=== PATIENT | female | born 1970 | race Caucasian/White ===

== ENCOUNTER → 2020-07-14 | Outpatient (CLI) | payer BC ==
--- NOTE | 2020-07-14 13:03 | Diagnostic Imaging Report ---
INDICATION: Fall and left knee pain. TIME OF EXAM: 11:40 AM Multiple views of the left knee were obtained. There are mild tricompartmental degenerative changes with mild joint space narrowing and marginal spurring. No fracture, dislocation or effusion is detected. IMPRESSION: Degenerative changes. No acute bony abnormality is detected. Dictated by: Dictated on workstation # [id number]
== END ==
LOC: RAD FS 11:30
PROVIDERS: ATTEND Nurse Practitioner
DX: S83.222A Peripheral tear of medial meniscus, current injury, left knee, initial encounter (principal); M17.12 Unilateral primary osteoarthritis, left knee; W19.XXXA Unspecified fall, initial encounter
CPT/HCPCS: 73562

== ENCOUNTER 2020-10-11 10:00 | Inpatient (IN) | payer BC ==
[~2020-10-11] VITALS: Ht 180 cm; Wt 166.2 kg
[2020-10-11 10:45] LABS: BASOPHILS # (AUTO) 0.1 10^3/uL (0.0-0.1); BASOPHILS % (AUTO) 0 % (0-10); EOSINOPHILS % (AUTO) 0 % (0-10); HEMATOCRIT 40 % (35-52); HEMOGLOBIN 12.7 g/dL (11.5-16.0); LYMPHOCYTES # (AUTO) 2.1 10^3/uL (1.0-4.0); LYMPHOCYTES % (AUTO) 16 % (12-44); MEAN CORPUSCULAR HEMOGLOBIN 26 pg (25-34); MEAN CORPUSCULAR HGB CONC 32 g/dL (32-36); MEAN CORPUSCULAR VOLUME 81 fL (80-99); MEAN PLATELET VOLUME 9.7 fL (9.0-12.2); MONOCYTES # (AUTO) 0.9 10^3/uL (0.0-1.0); MONOCYTES % (AUTO) 7 % (0-12); NEUTROPHILS # (AUTO) 10.2 10^3/uL (1.8-7.8); NEUTROPHILS % (AUTO) 76 % (42-75); PLATELET COUNT 314 10^3/uL (130-400); WHITE BLOOD COUNT 13.4 10^3/uL (4.3-11.0)
[2020-10-11 10:57] LABS: ALBUMIN 4.1 GM/DL (3.2-4.5)
[2020-10-11 10:58] LABS: POTASSIUM 3.6 MMOL/L (3.6-5.0)
[2020-10-11 10:59] LABS: CALCIUM 8.5 MG/DL (8.5-10.1)
[2020-10-11 11:00] LABS: TOTAL PROTEIN 8.1 GM/DL (6.4-8.2)
--- NOTE | 2020-10-11 11:00 | Diagnostic Imaging Report ---
History: Chest pain TECHNIQUE: Frontal view of the chest COMPARISON: None FINDINGS: Lung volumes are mildly large. Haziness over the lung bases is thought to be due to overlying soft tissue. There is mild cardiomegaly and mild central vascular congestion. No pleural effusion or pneumothorax is seen. IMPRESSION: 1. Mild cardiomegaly and mild central vascular congestion. Dictated by: Dictated on workstation # [id number]
[2020-10-11 11:02] LABS: BILIRUBIN,TOTAL 0.5 MG/DL (0.1-1.0)
[2020-10-11 11:04] LABS: CREATININE SERUM 1.02 MG/DL (0.60-1.30)
[2020-10-11 11:06] LABS: FIBRIN DEGRADATION PRODUCTS 11.3 UG/ML (0.00-0.49); INR 1.1 (0.8-1.4); MAGNESIUM 2.1 MG/DL (1.6-2.4); PROTHROMBIN TIME PATIENT 14.4 SEC (12.2-14.7)
--- NOTE | 2020-10-11 11:28 | NUR ---
RESTING IN BED WITH NO COMPLAINTS AT THIS TIME.
[2020-10-11] MEDS ORDERED: ASPIRIN 81 MG CHEW (CHILDREN'S ASA) PO ONE (11:45)
--- NOTE | 2020-10-11 11:47 | NUR ---
IN TALKING TO THE PT AT THIS TIME.
[2020-10-11] MEDS ORDERED: HOLD METFORMIN - RECEIVED CONTRAST 20 ML VIAL IV SCH (12:15)
[2020-10-11] MEDS ORDERED: NS 100 ML (IVPB) BAG IV ONE (12:15)
[2020-10-11] MEDS ORDERED: IOHEXOL 350 MG/ML 100 ML (OMNIPAQUE 350) VIAL IV ONE (12:15)
--- NOTE | 2020-10-11 13:08 | ED Chest Pain ---
General Chief Complaint: Chest Pain Stated Complaint: IRREGULAR EKG Nursing Triage Note: ARRIVED VIA AMB TO ROOM 09. SENT FROM [facility] WITH INCREASED SOA AND CHEST PAIN OVER LAST WEEK. PT STATES SHE HAS A COUGH IN THE EVENINGS. Nursing Sepsis Screen: No Definite Risk Source: patient, other (Clinic report) Exam Limitations: no limitations History of Present Illness Date Seen by Provider: Oct 11, 2020 Time Seen by Provider: 10:03 Initial Comments This 50-year-old woman presents to the emergency room via private vehicle from the [facility] clinic in [place] where she was noted to have chest pain and shortness of breath with exertion that started a week ago as well as a mild cough that started 3 weeks ago. She was noted to be hypoxic after exertion with oxygen saturation of 90% on room air. She was then directed to the emergency room. On arrival to our ER measures an oxygen saturation of 79% on room air. She denies any fever, nausea, diarrhea, headache, or other symptoms of infectious illness. She has no known Covid exposures. She notes chronic left knee pain but denies any calf or thigh pain or unilateral swelling. She did note increased pain in her knee when she traveled to [place] a week ago on Tuesday when her symptoms of exertional chest pain and shortness of breath st arted. Patient reports she is on oral contraception. Allergies and Home Medications Allergies Coded Allergies: No Known Drug Allergies (Unverified , 10/11/20) Patient Home Medication List Home Medication List Reviewed: Yes Review of Systems Review of Systems Constitutional: no symptoms reported EENTM: No Symptoms Reported Respiratory: See HPI Cardiovascular: See HPI Gastrointestinal: No Symptoms Reported Genitourinary: No Symptoms Reported Musculoskeletal: no symptoms reported Skin: no symptoms reported Psychiatric/Neurological: No Symptoms Reported Endocrine: No Symptoms Reported Hematologic/Lymphatic: No Symptoms Reported Past Bjdjfhv-Jrwhxm-Epemhb Hx Past Med/Social Hx: Reviewed Nursing Past Med/Soc Hx Patient Social History Alcohol Use: Rarely Uses Recreational Drug Use: No Recent Foreign Travel: No Contact w/Someone Who Travel: No Recent Infectious Disease Expo: No Recent Hopitalizations: No Seasonal Allergies Seasonal Allergies: No Past Medical History Surgeries: Yes (DENTAL) Respiratory: No Cardiac: Yes Hypertension Neurological: No : No Genitourinary: No Gastrointestinal: No Musculoskeletal: No Endocrine: No HEENT: No Cancer: No Psychosocial: No Physical Exam Vital Signs Vital Signs - First Documented 10/11/20 10:10 Temp 36.7 Pulse 95 Resp 16 B/P (MAP) 166/133 (144) Pulse Ox 79 O2 Delivery Nasal Cannula O2 Flow Rate 2.00 Capillary Refill : Less Than 3 Seconds Height, Weight, BMI Height: '" Weight: lbs. oz. 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 II- XII Norm as Tested Skin: Normal Color, Warm/Dry Progress/Results/Core Measures Results/Orders Lab Results Laboratory Tests Test 10/11/20 10:30 10/11/20 12:52 Range/Units White Blood Count 13.4 H 4.3-11.0 10^3/uL Red Blood Count 4.86 3.80-5.11 10^6/uL Hemoglobin 12.7 11.5-16.0 g/dL Hematocrit 40 35-52 % Mean Corpuscular Volume 81 80-99 fL Mean Corpuscular Hemoglobin 26 25-34 pg Mean Corpuscular Hemoglobin Concent 32 32-36 g/dL Red Cell Distribution Width 16.0 H 10.0-14.5 % Platelet Count 314 130-400 10^3/uL Mean Platelet Volume 9.7 9.0-12.2 fL Immature Granulocyte % (Auto) 1 % Neutrophils (%) (Auto) 76 H 42-75 % Lymphocytes (%) (Auto) 16 12-44 % Monocytes (%) (Auto) 7 0-12 % Eosinophils (%) (Auto) 0 0-10 % Basophils (%) (Auto) 0 0-10 % Neutrophils # (Auto) 10.2 H 1.8-7.8 10^3/uL Lymphocytes # (Auto) 2.1 1.0-4.0 10^3/uL Monocytes # (Auto) 0.9 0.0-1.0 10^3/uL Eosinophils # (Auto) 0.0 0.0-0.3 10^3/uL Basophils # (Auto) 0.1 0.0-0.1 10^3/uL Immature Granulocyte # (Auto) 0.1 0.0-0.1 10^3/uL Prothrombin Time 14.4 12.2-14.7 SEC INR Comment 1.1 0.8-1.4 Activated Partial Thromboplast Time 34 24-35 SEC D-Dimer 11.30 H 0.00-0.49 UG/ML Sodium Level 141 135-145 MMOL/L Potassium Level 3.6 3.6-5.0 MMOL/L Chloride Level 106 98-107 MMOL/L Carbon Dioxide Level 22 21-32 MMOL/L Anion Gap 13 5-14 MMOL/L Blood Urea Nitrogen 14 7-18 MG/DL Creatinine 1.02 0.60-1.30 MG/DL Estimat Glomerular Filtration Rate 57 BUN/Creatinine Ratio 14 Glucose Level 100 70-105 MG/DL Calcium Level 8.5 8.5-10.1 MG/DL Corrected Calcium 8.4 L 8.5-10.1 MG/DL Magnesium Level 2.1 1.6-2.4 MG/DL Total Bilirubin 0.5 0.1-1.0 MG/DL Aspartate Amino Transf (AST/SGOT) 15 5-34 U/L Alanine Aminotransferase (ALT/SGPT) 20 0-55 U/L Alkaline Phosphatase 149 H 40-136 U/L Lactate Dehydrogenase 239 H 125-220 U/L Myoglobin 30.8 10.0-92.0 NG/ML Troponin I 0.070 H <0.028 NG/ML C-Reactive Protein High Sensitivity 8.26 H 0.00-0.50 MG/DL B-Type Natriuretic Peptide 260.4 H <100.0 PG/ML Total Protein 8.1 6.4-8.2 GM/DL Albumin 4.1 3.2-4.5 GM/DL Procalcitonin 0.03 <0.10 NG/ML Coronavirus 2019 (HORTENCIA) Negative Negative Micro Results Microbiology 10/11/20 Influenza Types A,B Antigen (KIMANI) - Final, Complete My Orders Orders - STANLEY GARCIA MD Cbc With Automated Diff (10/11/20 10:03) Magnesium (10/11/20 10:03) Chest 1 View, Ap/Pa Only (10/11/20 10:03) Ekg Tracing (10/11/20 10:03) Comprehensive Metabolic Panel (10/11/20 10:03) Myoglobin Serum (10/11/20 10:03) Protime With Inr (10/11/20 10:03) Partial Thromboplastin Time (10/11/20 10:03) O2 (10/11/20 10:03) Monitor-Rhythm Ecg Trace Only (10/11/20 10:03) Lipid Panel (10/12/20 06:00) Ed Iv/Invasive Line Start (10/11/20 10:03) BNP (10/11/20 10:03) Covid 19 Inhouse Test (10/11/20 10:03) Influenza A And B Antigens (10/11/20 10:08) Fibrin Degradation Products (10/11/20 10:03) Hs C Reactive Protein (10/11/20 10:03) LDH (10/11/20 10:03) Procalcitonin (Pct) (10/11/20 10:03) Troponin I (10/11/20 10:03) Ct Angio Chest W (10/11/20 11:42) Aspirin Chewable Tablet (Baby Aspirin Ch (10/11/20 11:45) Iohexol Injection (Omnipaque 350 Mg/Ml 1 (10/11/20 12:15) Received Contrast (Hold Metformin- Contr (10/11/20 12:15) Ns (Ivpb) (Sodium Chloride 0.9% Ivpb Bag (10/11/20 12:15) Covid-19 Igg Only So (10/11/20 13:27) Apixaban Tablet (Eliquis Tablet) (10/11/20 14:00) Medications Given in ED Current Medications Medications Dose Ordered Sig/Ahmet Route Start Time Stop Time Status Last Admin Dose Admin Aspirin 324 mg ONCE ONCE PO 10/11/20 11:45 10/11/20 11:46 DC 10/11/20 12:22 324 MG Iohexol 100 ml ONCE ONCE IV 10/11/20 12:15 10/11/20 12:16 DC 10/11/20 12:37 92 ML Sodium Chloride 100 ml ONCE ONCE IV 10/11/20 12:15 10/11/20 12:16 DC 10/11/20 12:37 80 ML Vital Signs/I&O 10/11/20 10/11/20 10:10 10:10 Temp 36.7 Pulse 95 Resp 16 B/P (MAP) 166/133 (144) Pulse Ox 79 79 O2 Delivery Nasal Cannula Room Air O2 Flow Rate 2.00 Blood Pressure Mean: 144 Progress Progress Note : Progress Note Work-up revealed multiple problems including elevated troponin and a left bundle branch block on the EKG. D-dimer was markedly elevated and CT angiogram showed large bilateral PEs. It is thought that this may have been triggered by prior Covid infection as patient had a cough starting about 3 weeks ago. Patient also notes that she traveled to [place] a week ago when her pain in the chest started. Rapid Covid test was negative rapid influenza test was negative I discussed the situation with Dr. Chirstie who requested that we obtain a Covid antibody screen and take the patient off of PUI precautions at this time. I discussed with Dr. Neely who recommended starting therapeutic doses of Eliquis. The first dose will be given in the ER. Initial ECG Impression Date: Oct 11, 2020 Initial ECG Impression Time: 10:16 Initial ECG Rate: 93 Initial ECG Rhythm: Normal Sinus Comment Sinus rhythm with no overt ischemic ST elevation or depression. QRS suggestive of left bundle branch block. Diagnostic Imaging Diagonstic Imaging: Xray Plain Films/CT/US/NM/MRI: chest Comments Chest x-ray viewed by me and report reviewed. See report below: NAME: JELENA ROSS [facility] REC#: [id number] PT STATUS: REG ER : 1970 PHYSICIAN: STANLEY GARCIA MD ADMIT DATE: 10/11/20/ER Signed Date of Exam:10/11/20 CHEST 1 VIEW, AP/PA ONLY History: Chest pain TECHNIQUE: Frontal view of the chest COMPARISON: None FINDINGS: Lung volumes are mildly large. Haziness over the lung bases is thought to be due to overlying soft tissue. There is mild cardiomegaly and mild central vascular congestion. No pleural effusion or pneumothorax is seen. IMPRESSION: 1. Mild cardiomegaly and mild central vascular congestion. Dictated by: Dictated on workstation # [id number] Dict: 10/11/20 1058 Trans: 10/11/20 1059 S2M [id number] Interpreted by: YADI WILLIAMSON MD Electronically signed by: YADI WILLIAMSON MD 10/11/20 1059 Diagonstic Imaging: CT Plain Films/CT/US/NM/MRI: chest Comments CT angiogram chest viewed by me and report reviewed. See report below: NAME: JELENA ROSS [facility] REC#: [id number] PT STATUS: REG ER : 1970 PHYSICIAN: STANLEY GARCIA MD ADMIT DATE: 10/11/20/ER Draft Date of Exam:10/11/20 CT ANGIO CHEST W PROCEDURE: CT angiography of the chest with contrast. TECHNIQUE: Multiple contiguous axial images were obtained through the chest after uneventful bolus administration of intravenous contrast. 3D reconstructed CTA MIP acquisitions were also performed. Auto Exposure Controls were utilized during the CT exam to meet ALARA standards for radiation dose reduction. INDICATION: Chest pain. CORRELATION: None FINDINGS: There is rather significant contrast bolus timing present. However, there is the presence of an extensive pulmonary embolism. Clot originates within the distal aspect of both right and left main pulmonary arteries. There is a clot extending into the bilateral lower lobes, right middle lobe as well as bilateral upper lobe branches. Heart size is enlarged. Early right heart strain not excluded. No pericardial effusion. Thoracic aortic contour unremarkable. A few mildly prominent but non-pathologically enlarged mediastinal lymph nodes are noted. Azygos vein is slightly distended. There are mild groundglass opacities within the lung bahena particularly in the lower lobe distributions. No bar lobar consolidating infiltrate. No significant pleural effusion. There are scattered small pulmonary nodules present. Anterior right middle lobe subpleural region, 9 mm. There are several left lower lobe pulmonary nodules. Two adjacent nodules both measuring up to 5 mm. Likely hepatic steatosis. The visualized osseous structures demonstrate no acute findings. IMPRESSION: 1. Findings positive for pulmonary embolism. There is a rather extensive, large amount of thrombus burden. Clot originates at the distal aspect of the right and left main pulmonary arteries with involvement of all lobe segments. Question early right heart strain. CLINICAL FINDINGS Telephone call made to the emergency department, 12:56 PM. Dictated on workstation # [id number] Dict: 10/11/20 1254 Trans: 10/11/20 1312 [facility] [id number] Interpreted by: AARTI BARTON DO Departure Communication (Admissions) Time/Spoke to Admitting Phy: 13:45 Dr. Christie Time/Spoke to Consulting Phy: 13:05 Dr. Neely Impression Primary Impression: Bilateral pulmonary embolism Additional Impressions: Elevated troponin Hypoxia Disposition: ADMITTED INPATIENT Condition: Improved Admissions Decision to Admit Reason: Admit from ER (General) Decision to Admit/Date: Oct 11, 2020 Time/Decision to Admit Time: 10:05 Departure-Patient Inst. Referrals: [facility] (PCP) Primary Care Physician EDYTA NOGUERA APRN (Family) Primary Care Physician STANLEY GARCIA MD Oct 11, 2020 13:08
--- NOTE | 2020-10-11 13:13 | Diagnostic Imaging Report ---
PROCEDURE: CT angiography of the chest with contrast. TECHNIQUE: Multiple contiguous axial images were obtained through the chest after uneventful bolus administration of intravenous contrast. 3D reconstructed CTA MIP acquisitions were also performed. Auto Exposure Controls were utilized during the CT exam to meet ALARA standards for radiation dose reduction. INDICATION: Chest pain. CORRELATION: None FINDINGS: There is rather significant contrast bolus timing present. However, there is the presence of an extensive pulmonary embolism. Clot originates within the distal aspect of both right and left main pulmonary arteries. There is a clot extending into the bilateral lower lobes, right middle lobe as well as bilateral upper lobe branches. Heart size is enlarged. Early right heart strain not excluded. No pericardial effusion. Thoracic aortic contour unremarkable. A few mildly prominent but non-pathologically enlarged mediastinal lymph nodes are noted. Azygos vein is slightly distended. There are mild groundglass opacities within the lung bahena particularly in the lower lobe distributions. No bar lobar consolidating infiltrate. No significant pleural effusion. There are scattered small pulmonary nodules present. Anterior right middle lobe subpleural region, 9 mm. There are several left lower lobe pulmonary nodules. Two adjacent nodules both measuring up to 5 mm. Likely hepatic steatosis. The visualized osseous structures demonstrate no acute findings. IMPRESSION: 1. Findings positive for pulmonary embolism. There is a rather extensive, large amount of thrombus burden. Clot originates at the distal aspect of the right and left main pulmonary arteries with involvement of all lobe segments. Question early right heart strain. CLINICAL FINDINGS Telephone call made to the emergency department, 12:56 PM. Dictated by: Dictated on workstation # [id number]
--- NOTE | 2020-10-11 13:32 | NUR ---
PER DR SNYDER PT IS NO LONGER A PUI
[2020-10-11] MEDS ORDERED: APIXABAN 5 MG (ELIQUIS) TABLET PO ONE (14:00)
--- NOTE | 2020-10-11 15:17 | NUR ---
RESTING IN BED ET NOTIFIED SHE WOULD BE ADMITTED SOON ICU WAS READY. DENIES NEEDS AT THIS TIME.
--- NOTE | 2020-10-11 15:25 | NUR ---
PT BLOOD PRESSURE CONTINUES TO BE HIGH. PT STATES SHE IS ANXIOUS AND SCARED ABOUT BEING IN THE HOSPITAL ALONE.
[2020-10-11] MEDS ORDERED: ALPRAZolam 0.5 MG (XANAX) TAB PO PRN ×2 (15:30→16:30)
[2020-10-11] MEDS ORDERED: LORazepam INJ 2 MG/ML (ATIVAN) VIAL IVP ONE ×2 (15:45)
--- NOTE | 2020-10-11 15:51 | NUR ---
attempt to call report et nurse did not answer.
[2020-10-11 16:10] VITALS: BP 170/101
[2020-10-11] MEDS ORDERED: NS IV 1000 ML 1,000 ML ONE (16:12)
[2020-10-11] MEDS ORDERED: ONDANSETRON 4 MG/2 ML (SDV) Z0FRAN IV PRN (16:30)
[2020-10-11] MEDS ORDERED: NS IV 1000 ML 1,000 ML IV SCH (16:45)
[2020-10-11] MEDS ORDERED: LABETALOL HCL 20 MG/4 ML VIAL IV ONE (17:30)
--- NOTE | 2020-10-11 20:22 | History & Physical-Hospitalist ---
History of Present Illness HPI/Chief Complaint CC: Bilateral PE HPI: This is a 50yoWF clinic patient of [facility] who presented to the ER with dyspnea and cough which started 3 weeks ago. Upon w/u d-dimer was elevated and CT angiogram revealed large clot load of PE. Patient has never had a clot before. Left knee pain has limited her activity for the past 1 year. It is hypothesized she had COVID-19 3 weeks ago and thrombosis risk increased and left knee pain and immobility and obesity risk factors gave rise to the clot. Currently she is doing well and I spoke to her of 30 years on the phone with her. Eliquis 10mg given and will be monitored closely and COVID-19 antibody level was drawn and pending now. HLIVF will be initiated. Source: patient Exam Limitations: clinical condition Date Seen 10/11/20 Time Seen by a Provider: 17:30 Attending Physician Mari Christie DO [facility] Referring Physician Date of Admission Oct 11, 2020 at 14:02 Home Medications & Allergies Home Medications Reviewed patient Home Medication Reconciliation performed by pharmacy medication reconciliations maintenance parts technician and/or nursing. Patients Allergies have been reviewed. Allergies Allergies Coded Allergies No Known Drug Allergies (Unverified10/11/20) Past Msixkap-Anwnbl-Msqtlw Hx Past Med/Social Hx: Reviewed Nursing Past Med/Soc Hx, Reviewed and Corrections made Patient Social History Marrital Status: Employed/Student: unemployed Alcohol Use: Rarely Uses Recreational Drug Use: No Smoking Status: Never a Smoker Recent Foreign Travel: No Contact w/other who traveled: No Recent Hopitalizations: No Recent Infectious Disease Expo: No Seasonal Allergies Seasonal Allergies: No Past Medical History Cardiac: Hypertension : No Family History FH: skin cancer 19 MOTHER (FACIAL) Review of Systems Constitutional: see HPI Respiratory: cough, dyspnea on exertion Physical Exam Physical Exam Vital Signs Vital Signs - First Documented 10/11/20 10:10 Temp 36.7 Pulse 95 Resp 16 B/P (MAP) 166/133 (144) Capillary Refill : Less Than 3 Seconds Height, Weight, BMI Height: '" Weight: lbs. oz. kg; 49.96 BMI Method: General Appearance: No Apparent Distress, Chronically ill, Obese Eyes: Right Eye Normal Inspection, Right Eye PERRL HEENT: PERRL/EOMI, Normal ENT Inspection, Pharynx Normal, Moist Mucous Membranes Neck: Full Range of Motion, Normal Inspection, Non Tender Respiratory: Chest Non Tender, Lungs Clear, Normal Breath Sounds, No Accessory Muscle Use, No Respiratory Distress Cardiovascular: Regular Rate, Rhythm, No Edema, No Gallop, No JVD, No Murmur, Normal Peripheral Pulses Gastrointestinal: Normal Bowel Sounds, No Organomegaly, No Pulsatile Mass, Non Tender, Soft Back: Normal Inspection, No CVA Tenderness, No Vertebral Tenderness Extremity: Normal Capillary Refill, Normal Inspection, Normal Range of Motion, Non Tender, No Calf Tenderness, No Pedal Edema Neurologic/Psychiatric: Alert, Oriented x3, No Motor/Sensory Deficits, Normal Mood/Affect Skin: Normal Color, Warm/Dry Lymphatic: No Adenopathy Results Results/Procedures Labs Laboratory Tests 10/11/20 10:30 Patient resulted labs reviewed. Assessment/Plan Admission Diagnosis Assessment: Bilateral PE Presumed COVID 3 weeks ago increasing thrombosis risk Obesity morbid BMI 50 Left knee pain limiting mobility x 1 year HTN Plan: Eliquis 10mg PO BID HLIVF Monitor closely Admission Status: Inpatient Order (span 2 midnights) Reason for Inpatient Admission: PE Diagnosis/Problems Diagnosis/Problems (1) Bilateral pulmonary embolism Status: Acute (2) Elevated troponin Status: Acute (3) Hypoxia Status: Acute Clinical Quality Measures AMI/AHF: ASA po Prior to arrival: No DVT/VTE Risk/Contraindication: Risk Factor Score Per Nursin RFS Level Per Nursing on Admit: 3=High MARI CHRISTIE DO Oct 11, 2020 20:22
[2020-10-11] MEDS: SENNA W/DOCUSATE (SENOKOT S) TABLET PO SCH (20:53)
[2020-10-11] MEDS ORDERED: LORazepam INJ 2 MG/ML (ATIVAN) VIAL ONE (20:59)
[2020-10-11] MEDS ORDERED: DOCUSATE SODIUM 100 MG (COLACE) CAP PO PRN (21:00)
[2020-10-11] MEDS ORDERED: ONDANSETRON 4 MG/2 ML (SDV) Z0FRAN IVP PRN (21:00)
[2020-10-11] MEDS ORDERED: diphenhydrAMINE 25 MG TAB (BENADRYL) PO PRN (21:00)
[2020-10-11] MEDS ORDERED: morphine INJ 10 MG/ML 1ML (SYR OR VIAL) IVP PRN (21:00)
[2020-10-11] MEDS ORDERED: CALCIUM CARBONATE 500 MG (TUMS) TAB.CHEW PO PRN (21:00)
[2020-10-11] MEDS ORDERED: ACETAMINOPHEN 500 MG TAB (TYLENOL) PO PRN (21:00)
[2020-10-11] MEDS ORDERED: LOPERAMIDE 2 MG (IMODIUM) TABLET PO PRN (21:00)
[2020-10-11] MEDS ORDERED: HYDROcodone/APAP 5 MG/325 MG (LORTAB) TAB PO PRN (21:00)
[2020-10-11] MEDS ORDERED: MELATONIN 3 MG TABLET PO PRN (21:00)
[2020-10-11] MEDS: APIXABAN 5 MG (ELIQUIS) TABLET PO SCH (21:19)
[2020-10-12 03:13] LABS: BASOPHILS % (AUTO) 0 % (0-10); EOSINOPHILS # (AUTO) 0.1 10^3/uL (0.0-0.3); EOSINOPHILS % (AUTO) 1 % (0-10); HEMATOCRIT 35 % (35-52); HEMOGLOBIN 11.1 g/dL (11.5-16.0); LYMPHOCYTES # (AUTO) 2.4 10^3/uL (1.0-4.0); LYMPHOCYTES % (AUTO) 20 % (12-44); MEAN CORPUSCULAR HEMOGLOBIN 26 pg (25-34); MEAN CORPUSCULAR HGB CONC 31 g/dL (32-36); MEAN CORPUSCULAR VOLUME 82 fL (80-99); MEAN PLATELET VOLUME 9.9 fL (9.0-12.2); MONOCYTES % (AUTO) 9 % (0-12); NEUTROPHILS # (AUTO) 8.4 10^3/uL (1.8-7.8); NEUTROPHILS % (AUTO) 70 % (42-75); PLATELET COUNT 255 10^3/uL (130-400)
[2020-10-12 03:33] LABS: CHLORIDE 107 MMOL/L (98-107); POTASSIUM 3.7 MMOL/L (3.6-5.0); SODIUM 140 MMOL/L (135-145)
[2020-10-12 03:35] LABS: GLUCOSE 91 MG/DL (70-105); TRIGLYCERIDES 65 MG/DL (<150); VLDL CHOLESTEROL 13 MG/DL (5-40)
[2020-10-12 03:37] LABS: CARBON DIOXIDE 21 MMOL/L (21-32)
[2020-10-12 03:39] LABS: CREATININE SERUM 0.92 MG/DL (0.60-1.30); GFR ESTIMATED > 60; PHOSPHORUS 4.6 MG/DL (2.3-4.7)
[2020-10-12 03:40] LABS: BUN/CREATININE RATIO 16; CHOLESTEROL 125 MG/DL (< 200)
[2020-10-12 03:41] LABS: HDL CHOLESTEROL 45 MG/DL (40-60); MAGNESIUM 2.1 MG/DL (1.6-2.4)
[2020-10-12] MEDS ORDERED: KCL 20 MEQ TAB (K-DUR) PO SCH (06:00)
[2020-10-12] MEDS ORDERED: MAGNESIUM 1 GM/100 ML IVPB 100 ML IV SCH (06:00)
[2020-10-12] MEDS ORDERED: POTASSIUM CL 10MEQ/50ML IVPB 50 ML IV SCH (06:00)
[2020-10-12] MEDS: SENNA W/DOCUSATE (SENOKOT S) TABLET PO SCH ×2 (08:21→21:17)
[2020-10-12] MEDS: APIXABAN 5 MG (ELIQUIS) TABLET PO SCH ×2 (08:21→21:16)
[2020-10-12] MEDS: ALPRAZolam 0.25 MG (XANAX) TAB PO PRN ×2 (08:21→21:16)
[2020-10-12] MEDS ORDERED: ACETAMINOPHEN 325 MG TABLET PO PRN (08:30)
--- NOTE | 2020-10-12 08:54 | Diagnostic Imaging Report ---
EXAM: Portable erect AP chest at 6:48 AM INDICATION: Dyspnea The cardiomegaly noted on the prior exam of 10/11/2020 is again evident and no different. The central pulmonary vasculature is somewhat prominent but also unchanged when compared to the prior study. However since the prior exam, a small amount of atelectasis/infiltrate and fluid has developed in the right lung base. The lungs are otherwise generally clear although the left retrocardiac region is not well penetrated. The mediastinum is not widened. The osseous structures are intact. IMPRESSION: Small area of increased density has developed in the right lung base. This is most likely due to mild atelectasis/infiltrate and/or fluid. A follow-up study would be recommended for continued evaluation. Dictated by: Dictated on workstation # [id number]
--- NOTE | 2020-10-12 12:19 | Progress Note - Hospitalist ---
Subjective HPI/CC On Admission Date Seen by Provider: Oct 12, 2020 Time Seen by Provider: 11:00 CC: Bilateral PE HPI: This is a 50yoWF clinic patient of [facility] who presented to the ER with dyspnea and cough which started 3 weeks ago. Upon w/u d-dimer was elevated and CT angiogram revealed large clot load of PE. Patient has never had a clot before. Left knee pain has limited her activity for the past 1 year. It is hypothesized she had COVID-19 3 weeks ago and thrombosis risk increased and left knee pain and immobility and obesity risk factors gave rise to the clot. Currently she is doing well and I spoke to her of 30 years on the phone with her. Eliquis 10mg given and will be monitored closely and COVID-19 antibody level was drawn and pending now. HLIVF will be initiated. Subjective/Events-last exam Patient doing well Slept ok last night O2 2L/min Left leg DVT noted Home O2 will be needed Cardiology consultation appreciated Eliquis maintained Review of Systems General: Fatigue, Malaise Objective Exam Vital Signs Vital Signs Date Time Temp Pulse Resp B/P (MAP) Pulse Ox O2 Delivery O2 Flow Rate FiO2 10/12/20 16:00 36.8 20 174/141 (152) 96 Nasal Cannula 1.00 10/12/20 13:00 88 10/12/20 07:53 94 Capillary Refill : Less Than 3 Seconds General Appearance: No Apparent Distress, WD/WN, Chronically ill, Obese Respiratory: Chest Non Tender, Lungs Clear, Normal Breath Sounds, No Accessory Muscle Use, No Respiratory Distress Cardiovascular: Regular Rate, Rhythm, No Edema, No Gallop, No JVD, No Murmur, Normal Peripheral Pulses Neurologic/Psychiatric: Alert, Oriented x3, No Motor/Sensory Deficits, Normal Mood/Affect Results/Procedures Lab Laboratory Tests 10/12/20 02:50 Patient resulted labs reviewed. Assessment/Plan Assessment and Plan Assess & Plan/Chief Complaint Assessment: Bilateral PE Left leg DVT on USG Presumed COVID 3 weeks ago increasing thrombosis risk Obesity morbid BMI 50 Left knee pain limiting mobility x 1 year HTN Plan: Eliquis 10mg PO BID HLIVF Monitor closely 10/12/20: Move to floor Cardiology appreciated Eliquis O2 Left leg DVT Diagnosis/Problems Diagnosis/Problems (1) Bilateral pulmonary embolism Status: Acute (2) Elevated troponin Status: Acute (3) Hypoxia Status: Acute Clinical Quality Measures AMI/AHF: ASA po Prior to arrival: No DVT/VTE Risk/Contraindication: Risk Factor Score Per Nursin RFS Level Per Nursing on Admit: 3=High IBETH SNYDER DO Oct 12, 2020 12:19
--- NOTE | 2020-10-12 13:14 | Diagnostic Imaging Report ---
PROCEDURE: US Venous Lower Ext Nj. TECHNIQUE: Multiple real-time grayscale images were obtained over the lower extremities in various projections, bilaterally. Additional duplex Doppler and color Doppler images were also obtained. INDICATION: Leg pain and swelling. COMPARISON: There are no prior studies available for comparison. FINDINGS: There is thrombosis of the left lower extremity. Specifically, there is thrombus formation originating in the popliteal vein extending into the anterior and posterior tibial veins. There seems to be fairly good blood flow and compressibility in the common femoral and proximal superficial femoral veins. IMPRESSION: 1. There is thrombosis of the popliteal anterior and posterior tibial veins. 2. These results were conveyed to the patient's nursing station by our sonologist. Dictated by: Dictated on workstation # [id number]
--- NOTE | 2020-10-12 13:48 | NUR ---
REPORT CALLED TO ANICETO VASQUEZ.
--- NOTE | 2020-10-12 15:02 | Consultation-Cardiology ---
HPI-Cardiology Cardiology Consultation: Date of Consultation 10/12/20 Date of Admission Attending Physician Mari Christie DO Admitting Physician [facility] Consulting Physician Jen NEELY MD HPI: Time Seen by a Provider: 13:00 Chief Complaint: shortness of breath This is a 50-year-old lady who presents to the ER with complaints of chest pain and shortness of breath. She has been having cough for the last 3 weeks. She was noted to be hypoxic. With oxygen saturation of 90% on room air in the [facility]. In the ER her oxygen saturation was 79%. She has been having left knee pain after an injury and has not been very ambulatory. She denies any prolonged travel. She also denies any surgeries. Review of Systems-Cardiology Review of Systems Constitutional: As described under HPI; No As described under HPI, No no symptoms reported, No chills, No fever, No lightheadedness Eyes: No As described under HPI, No no symptoms reported, No blindness, No blurred vision, No contact lenses, No drainage, No decreased acuity, No foreign body sensation, No pain, No vision change Ears/Nose/Throat: No As described under HPI, No no symptoms reported, No chronic hearing loss, No ear discharge, No ear pain, No nasal drainage, No ulcerations Respiratory: No no symptoms reported; As described under HPI; No As described under HPI, No cough; orthopnea; No shortness of breath, No SOB with excertion Cardiovascular: No no symptoms reported; As described under HPI; No As described under HPI, No chest pain, No edema, No irregular heart rate, No lightheadedness, No palpitations Gastrointestinal: No no symptoms reported, No As described under HPI, No abdomen distended, No abdominal pain, No blood streaked bowels, No constipation, No diarrhea, No nausea, No vomiting, No stool coloration changes Genitourinary: No As described under HPI, No burning, No dysuria, No discharge, No frequency, No flank pain, No hematuria, No urgency : Yes : No Skin: No rash, No skin related problems, No ulcerations Psychiatric/Neurological: No anxiety, No depression, No seizure, No focal weakness, No syncope Hematologic: No bleeding abnormalities [id number] Hx Patient Social History Marrital Status: Employed/Student: unemployed Alcohol Use: Rarely Uses Recreational Drug Use: No Smoking Status: Never a Smoker Recent Foreign Travel: No Recent Infectious Disease Expo: No Past Medical History PMH As described under Assessment. Family Medical History Family History: FH: skin cancer 19 MOTHER (FACIAL) Allergies and Home Medications Allergies Coded Allergies: No Known Drug Allergies (Unverified , 10/11/20) Patient Home Medication List Home Medication List Reviewed: Yes Physical Exam-Cardiology Physical Exam Vital Signs/I&O 10/12/20 10/12/20 10/12/20 10/12/20 12:00 13:00 13:23 16:00 Temp 36.8 Pulse 86 88 Resp 31 20 B/P (MAP) 181/120 (140) 174/141 (152) Pulse Ox 98 96 O2 Delivery Nasal Cannula Nasal Cannula Nasal Cannula O2 Flow Rate 2.00 1.00 1.00 10/12/20 10/12/20 10/12/20 20:00 20:00 20:06 Temp 37.2 Pulse 96 105 Resp 20 B/P (MAP) 177/122 (140) Pulse Ox 97 O2 Delivery Nasal Cannula Nasal Cannula O2 Flow Rate 1.00 1.00 10/12/20 00:00 Intake Total 300 ml Output Total 0 ml Balance 300 ml Capillary Refill : Less Than 3 Seconds Constitutional: appears stated age, AAO x 3; No apparent distress; well- developed, well-nourished HEENT: PERRL; No discharge; hearing is well preserved, oral hygience is good; No ulceration, No xanthelasmas are seen Neck: No carotid bruit; carotid pulses are 2 + bilaterally Respiratory: chest is bilaterally symmetric, lungs clear to auscultation Cardiovascular: regular rate-rhythm, S1 and S2 Gastrointestinal: soft, audible bowel sounds; No spleenomegaly Rectal: deferred Extremities: No clubbing, No cyanosis, No significant edema Neurologic/Psychiatric: no motor/sensory deficits, alert, normal mood/affect, oriented x 3, power is 5/5 both on sides Skin: normal color; No rash, No ulcerations Data Review Labs Laboratory Tests 10/12/20 02:50: White Blood Count 12.0H, Red Blood Count 4.32, Hemoglobin 11.1L, Hematocrit 35, Mean Corpuscular Volume 82, Mean Corpuscular Hemoglobin 26, Mean Corpuscular Hemoglobin Concent 31L, Red Cell Distribution Width 16.0H, Platelet Count 255, Mean Platelet Volume 9.9, Immature Granulocyte % (Auto) 0, Neutrophils (%) (Auto) 70, Lymphocytes (%) (Auto) 20, Monocytes (%) (Auto) 9, Eosinophils (%) (Auto) 1, Basophils (%) (Auto) 0, Neutrophils # (Auto) 8.4H, Lymphocytes # (Auto) 2.4, Monocytes # (Auto) 1.0, Eosinophils # (Auto) 0.1, Basophils # (Auto) 0.0, Immature Granulocyte # (Auto) 0.0, Sodium Level 140, Potassium Level 3.7, Chloride Level 107, Carbon Dioxide Level 21, Anion Gap 12, Blood Urea Nitrogen 15, Creatinine 0.92, Estimat Glomerular Filtration Rate > 60, BUN/Creatinine Ratio 16, Glucose Level 91, Calcium Level 8.0L, Phosphorus Level 4.6, Magnesium Level 2.1, Triglycerides Level 65, Cholesterol Level 125, LDL Cholesterol Direct 71, VLDL Cholesterol 13, HDL Cholesterol 45 Microbiology 10/11/20 MRSA Screen - Final, Complete MRSA not isolated A/P-Cardiology Assessment/Admission Diagnosis Bilateral pulmonary embolism, Plan Bilateral pulmonary embolism with hypoxia. Left lower extremity DVT. Etiology is likely nonambulatory status due to left knee injury. High dose Eliquis for 7 days followed by oral anticoagulation for at least 6 months is recommended. We will also recommend an echocardiogram for measuring PA pressure and RV strain. Borderline positive troponin is very likely due to large PE. However patient may be a candidate for a nuclear stress test as an outpatient. When I saw the patient oxygen saturation was 93% on room air. Dr. Marquez to take over cardiology care tomorrow Thank you for your consultation. Please call me if you have any questions. Masha Neely MD, FACP, FACC, FSCAI, FHRS, CCDS Interventional Cardiology Cardiac Electrophysiology Vascular Medicine and Endovascular Interventions Clinical Quality Measures AMI/AHF: ASA po Prior to arrival: No DVT/VTE Risk/Contraindication: Risk Factor Score Per Nursin RFS Level Per Nursing on Admit: 3=High Jen NEELY MD Oct 12, 2020 15:02
--- NOTE | 2020-10-12 15:12 | NUR ---
PATIENT SETTLED IN ROOM 415. PATIENT DENIES ANY NEEDS AT THIS TIME. WILL CONTINUE TO MONITOR.
[2020-10-13 05:52] LABS: BASOPHILS # (AUTO) 0.1 10^3/uL (0.0-0.1); BASOPHILS % (AUTO) 1 % (0-10); EOSINOPHILS # (AUTO) 0.1 10^3/uL (0.0-0.3); EOSINOPHILS % (AUTO) 1 % (0-10); HEMATOCRIT 36 % (35-52); HEMOGLOBIN 11.2 g/dL (11.5-16.0); LYMPHOCYTES % (AUTO) 27 % (12-44); MEAN CORPUSCULAR HEMOGLOBIN 25 pg (25-34); MEAN CORPUSCULAR HGB CONC 31 g/dL (32-36); MEAN CORPUSCULAR VOLUME 81 fL (80-99); MONOCYTES # (AUTO) 1.1 10^3/uL (0.0-1.0); MONOCYTES % (AUTO) 10 % (0-12); NEUTROPHILS # (AUTO) 6.9 10^3/uL (1.8-7.8); NEUTROPHILS % (AUTO) 62 % (42-75); PLATELET COUNT 315 10^3/uL (130-400); WHITE BLOOD COUNT 11.2 10^3/uL (4.3-11.0)
[2020-10-13 06:08] LABS: ALBUMIN 3.5 GM/DL (3.2-4.5); CHLORIDE 105 MMOL/L (98-107); POTASSIUM 3.7 MMOL/L (3.6-5.0); SODIUM 139 MMOL/L (135-145)
[2020-10-13 06:09] LABS: CALCIUM 7.8 MG/DL (8.5-10.1)
[2020-10-13 06:10] LABS: GLUCOSE 92 MG/DL (70-105); TOTAL PROTEIN 6.9 GM/DL (6.4-8.2)
[2020-10-13 06:11] LABS: CARBON DIOXIDE 21 MMOL/L (21-32)
[2020-10-13 06:12] LABS: BILIRUBIN,TOTAL 0.4 MG/DL (0.1-1.0)
[2020-10-13 06:13] LABS: ALKALINE PHOSPHATASE 122 U/L (40-136)
[2020-10-13 06:14] LABS: CREATININE SERUM 0.87 MG/DL (0.60-1.30); GFR ESTIMATED > 60
[2020-10-13 06:15] LABS: BUN/CREATININE RATIO 16
[2020-10-13 06:17] LABS: ALANINE AMINOTRANSFERASE 16 U/L (0-55)
[2020-10-13] MEDS ORDERED: LEVO125T6 PO (09:00)
[2020-10-13] MEDS ORDERED: APIX5TAB PO (09:02)
--- NOTE | 2020-10-13 09:02 | Discharge Summary ---
Discharge Summary Hospital Course Problems/Dx: (1) Bilateral pulmonary embolism Status: Acute (2) Elevated troponin Status: Acute (3) Hypoxia Status: Acute Hospital Course Date of Admission: Oct 11, 2020 at 14:02 Admission Diagnosis : Family Physician/Provider: Melida Green Aprn Date of Discharge: 10/13/20 Discharge Diagnosis: [ ] Hospital Course: [ ] Labs and Pending Lab Test: Laboratory Tests 10/13/20 05:15: White Blood Count 11.2H, Red Blood Count 4.42, Hemoglobin 11.2L, Hematocrit 36, Mean Corpuscular Volume 81, Mean Corpuscular Hemoglobin 25, Mean Corpuscular Hemoglobin Concent 31L, Red Cell Distribution Width 16.0H, Platelet Count 315, Mean Platelet Volume 10.0, Immature Granulocyte % (Auto) 0, Neutrophils (%) (Auto) 62, Lymphocytes (%) (Auto) 27, Monocytes (%) (Auto) 10, Eosinophils (%) (Auto) 1, Basophils (%) (Auto) 1, Neutrophils # (Auto) 6.9, Lymphocytes # (Auto) 3.0, Monocytes # (Auto) 1.1H, Eosinophils # (Auto) 0.1, Basophils # (Auto) 0.1, Immature Granulocyte # (Auto) 0.1, Sodium Level 139, Potassium Level 3.7, Chloride Level 105, Carbon Dioxide Level 21, Anion Gap 13, Blood Urea Nitrogen 14, Creatinine 0.87, Estimat Glomerular Filtration Rate > 60, BUN/Creatinine Ratio 16, Glucose Level 92, Calcium Level 7.8L, Corrected Calcium 8.2L, Total Bilirubin 0.4, Aspartate Amino Transf (AST/SGOT) 13, Alanine Aminotransferase (ALT/SGPT) 16, Alkaline Phosphatase 122, Total Protein 6.9, Albumin 3.5 Microbiology 10/11/20 MRSA Screen - Final, Complete MRSA not isolated Home Meds Active Eliquis (Apixaban) 5 Mg Tablet 5 Mg PO BID 30 Days TAKE 2 TABLETS BID X 6 DAYS, THEN 1 TABLET BID Reported Levothyroxine Sodium 125 Mcg Tablet 125 Mcg PO DAILY Discharge Physical Examination Vital Signs Vital Signs Date Time Temp Pulse Resp B/P (MAP) Pulse Ox O2 Delivery O2 Flow Rate FiO2 10/13/20 04:00 37.2 84 20 148/96 (113) 94 Nasal Cannula 1.50 10/12/20 07:53 94 Allergies: Coded Allergies: No Known Drug Allergies (Unverified , 10/11/20) Discharge Summary Date of Admission Oct 11, 2020 at 14:02 Date of Discharge Discharge Date: Oct 13, 2020 Admission Diagnosis Assessment: Bilateral PE Presumed COVID 3 weeks ago increasing thrombosis risk Obesity morbid BMI 50 Left knee pain limiting mobility x 1 year HTN Plan: Eliquis 10mg PO BID HLIVF Monitor closely Discharge Diagnosis Assessment: Bilateral PE Left leg DVT on USG Presumed COVID 3 weeks ago increasing thrombosis risk Obesity morbid BMI 50 Left knee pain limiting mobility x 1 year HTN Plan: Eliquis 10mg PO BID HLIVF Monitor closely 10/12/20: Move to floor Cardiology appreciated Eliquis O2 Left leg DVT (1) Bilateral pulmonary embolism Status: Acute (2) Elevated troponin Status: Acute (3) Hypoxia Status: Acute Clinical Quality Measures AMI/AHF: ASA po Prior to arrival: No DVT/VTE Risk/Contraindication: Risk Factor Score Per Nursin RFS Level Per Nursing on Admit: 3=High IBETH SNYDER DO Oct 13, 2020 09:02
--- NOTE | 2020-10-13 09:25 | Cardiology Progress Note ---
Subjective Date Seen by Provider: Oct 13, 2020 Time Seen by Provider: 09:22 Subjective/Events-last exam Patient sitting up in chair, c/o left calf pain, denies any chest pain or increased dyspnea. Review of Systems General: No Chills, No Night Sweats, No Fatigue, No Malaise, No Appetite, No Other HEENT: No Head Aches, No Visual Changes, No Eye Pain, No Ear Pain, No Dysphasia, No Sinus Congestion, No Post Nasal Drip, No Sore Throat, No Other Pulmonary: No Dyspnea, No Cough, No Pleuritic Chest Pain, No Other Cardiovascular: No: Chest Pain, Palpitations, Orthopnea, Paroxysmal Noc. Dyspnea, Edema, Lt Headedness, Other Objective-Cardiology Exam Last Set of Vital Signs Vital Signs 10/12/20 10/13/20 10/13/20 07:53 11:31 12:21 Temp 36.1 Pulse 85 Resp 24 B/P (MAP) 184/124 (144) Pulse Ox 92 O2 Delivery Nasal Cannula O2 Flow Rate 3.00 FiO2 94 Capillary Refill : Less Than 3 Seconds I&O Intake and Output 10/13/20 00:00 Intake Total 2720 ml Output Total 200 ml Balance 2520 ml Intake Oral 2070 ml IV Total 650 ml Output Urine Total 200 ml # Voids 7 # Bowel Movements 1 General: Alert, Oriented X3, Cooperative HEENT: Atraumatic, PERRLA Neck: Supple, No JVD, No Thyromegaly Lungs: Clear to Auscultation, Normal Air Movement Heart: Regular Rate, Normal S1, Normal S2, No Murmurs Abdomen: Normal Bowel Sounds, Soft, No Tenderness, No Hepatosplenomegaly, No Masses Extremities: No Clubbing, No Cyanosis, Normal Pulses, No Tenderness/Swelling, Other (+1 edema BLE) Skin: No Rashes, No Breakdown, No Significant Lesion Neuro: Normal Speech, Cranial Nerves 3-12 NL Results Lab Laboratory Tests 10/13/20 05:15 A/P-Cardiology Admission Diagnosis Bilat PE LLE DVT HTN Hypothyroidism Assessment/Plan Bilateral pulmonary embolism with hypoxia. Left lower extremity DVT. Etiology is likely nonambulatory status due to left knee injury. High dose Eliquis for 7 days followed by oral anticoagulation for at least 6 months is recommended. I will evaluate 2D Echo. Borderline positive troponin is very likely due to large PE. However patient may be a candidate for a nuclear stress test as an outpatient. HTN, I will add lisinopril, continue to monitor blood pressure Hypothyroidism Patient was seen and evaluated with Laura, examination performed, management plan was discussed, agree with the current scribed note, I made few changes to the note using Italic font Patient was seen and evaluated, had long discussion with the patient and her , recommended oral anticoagulation Add lisinopril for her hypertension monitor blood pressure Evaluate 2-D echo Clinical Quality Measures AMI/AHF: ASA po Prior to arrival: No DVT/VTE Risk/Contraindication: Risk Factor Score Per Nursin RFS Level Per Nursing on Admit: 3=High LAURA MOCK Oct 13, 2020 9:25 am MARTA BARROSO MD Oct 13, 2020 5:09 pm
[2020-10-13] MEDS: APIXABAN 5 MG (ELIQUIS) TABLET PO SCH (09:26)
[2020-10-13] MEDS: SENNA W/DOCUSATE (SENOKOT S) TABLET PO SCH (09:26)
[2020-10-13] MEDS ORDERED: LEVO-243 PO (10:39)
--- NOTE | 2020-10-13 10:44 | Discharge Summary ---
Discharge Summary Hospital Course Was the Problem List Reviewed?: Yes Problems/Dx: (1) Bilateral pulmonary embolism Status: Acute (2) Elevated troponin Status: Acute (3) Hypoxia Status: Acute Hospital Course Date of Admission: Oct 11, 2020 at 14:02 Admission Diagnosis : Family Physician/Provider: Melida Green Aprn Date of Discharge: 10/13/20 Discharge Diagnosis: bilateral PE, hypoxia, left leg DVT, type 2 OR Hospital Course: Hospital course: Pt had a brief hospital course, she was admitted for SOB and hypoxia. Pt was found to have a large clot burden with pulmonary embolism on CT angiogram, she did require oxygen. Cardiology evaluated her, echocardiogram ordered to evaluate right heart strain, she did require home oxygen at discharge. She was placed on Eliquis per protocol and will have close follow-up with Dr. Marquez Cardiology and [facility] this week. She was instructed to stop her control pill and will wean off oxygen as tolerated. Labs and Pending Lab Test: Laboratory Tests 10/13/20 05:15: White Blood Count 11.2H, Red Blood Count 4.42, Hemoglobin 11.2L, Hematocrit 36, Mean Corpuscular Volume 81, Mean Corpuscular Hemoglobin 25, Mean Corpuscular Hemoglobin Concent 31L, Red Cell Distribution Width 16.0H, Platelet Count 315, Mean Platelet Volume 10.0, Immature Granulocyte % (Auto) 0, Neutrophils (%) (Auto) 62, Lymphocytes (%) (Auto) 27, Monocytes (%) (Auto) 10, Eosinophils (%) (Auto) 1, Basophils (%) (Auto) 1, Neutrophils # (Auto) 6.9, Lymphocytes # (Auto) 3.0, Monocytes # (Auto) 1.1H, Eosinophils # (Auto) 0.1, Basophils # (Auto) 0.1, Immature Granulocyte # (Auto) 0.1, Sodium Level 139, Potassium Level 3.7, Chloride Level 105, Carbon Dioxide Level 21, Anion Gap 13, Blood Urea Nitrogen 14, Creatinine 0.87, Estimat Glomerular Filtration Rate > 60, BUN/Creatinine Ratio 16, Glucose Level 92, Calcium Level 7.8L, Corrected Calcium 8.2L, Total Bilirubin 0.4, Aspartate Amino Transf (AST/SGOT) 13, Alanine Aminotransferase (ALT/SGPT) 16, Alkaline Phosphatase 122, Total Protein 6.9, Albumin 3.5 Microbiology 10/11/20 MRSA Screen - Final, Complete MRSA not isolated Home Meds Active Eliquis (Apixaban) 5 Mg Tablet 5 Mg PO BID 30 Days TAKE 2 TABLETS BID X 6 DAYS, THEN 1 TABLET BID Reported Levonor-Eth Estrad Triphasic (Levonorgestrel-Ethin Estradiol) 1 Each Tablet 1 Ea PO DAILY Levothyroxine Sodium 125 Mcg Tablet 125 Mcg PO DAILY Assessment/Pt Instructions [facility] 1 week Discharge Planning: <30 minutes discharge planning Discharge Instructions Discharge Diet: No Restrictions Discharge Physical Examination Vital Signs Vital Signs Date Time Temp Pulse Resp B/P (MAP) Pulse Ox O2 Delivery O2 Flow Rate FiO2 10/13/20 08:00 36.1 86 18 145/104 (118) 91 Nasal Cannula 1.50 10/12/20 07:53 94 General Appearance: No Apparent Distress, WD/WN, Chronically ill, Obese Respiratory: Lungs Clear Allergies: Coded Allergies: No Known Drug Allergies (Unverified , 10/11/20) Discharge Summary Date of Admission Oct 11, 2020 at 14:02 Date of Discharge Discharge Date: Oct 13, 2020 Admission Diagnosis Assessment: Bilateral PE Presumed COVID 3 weeks ago increasing thrombosis risk Obesity morbid BMI 50 Left knee pain limiting mobility x 1 year HTN Plan: Eliquis 10mg PO BID HLIVF Monitor closely Discharge Diagnosis Assessment: Bilateral PE Left leg DVT on USG Presumed COVID 3 weeks ago increasing thrombosis risk Obesity morbid BMI 50 Left knee pain limiting mobility x 1 year HTN Plan: Eliquis 10mg PO BID HLIVF Monitor closely 10/12/20: Move to floor Cardiology appreciated Eliquis O2 Left leg DVT (1) Bilateral pulmonary embolism Status: Acute (2) Elevated troponin Status: Acute (3) Hypoxia Status: Acute Clinical Quality Measures AMI/AHF: ASA po Prior to arrival: No DVT/VTE Risk/Contraindication: Risk Factor Score Per Nursin RFS Level Per Nursing on Admit: 3=High IBETH SNYDER DO Oct 13, 2020 10:44
--- NOTE | 2020-10-13 11:18 | NUR ---
CM/SS: Visited with pt as per plan for discharge related Eliquis, services and oxygen. Plan: Pt will return home where she lives with her spouse at time of discharge with oxygen based on home oxygen study. Summary: Pt is known to this worker from the [facility]. Pt reports feeling better on today. Pt reports she has blood clots and that they have made her short of breath. Pt feels as of she has had problems since she has a fall on her knee at the beginning of last year. She reports that she had no idea that if you had a blood clot, that you could be short of breath. Pt is currently wearing oxygen and has not worn it prior to her hospital stay. Discuss oxygen and pt would desire it from [facility] in [place]. Spouse is able to draft roller picker on way to draft roller picker pt. Pt is also given coupons form Eliquis, and encouraged to take to the pharmacy when she picks up medication. Pt does some life review in talking about her grandchildren. Pt is eager to get home. She is aware that it will be important for her to follow up with her primary physician once discharged. She verbalizes understanding.
--- NOTE | 2020-10-13 11:22 | NUR ---
Patient walked 160 feet patient required 3L to maintain sats above 90%. Addendum: 10/13/20 at 1123 by SLOAN GRAJEDA RT Amended: Links added.
[2020-10-13] MEDS ORDERED: lisINopril 10 MG (PRINIVIL) TABLET PO SCH (12:00)
--- NOTE | 2020-10-13 12:19 | Progress Note ---
DANISH DELGADO MED STUDENT 10/13/20 1219: Progress Note Joanne Flores is a 50yoWF who presented to the ED from the [facility] clinic in [place] with new onset dyspnea and a cough which started 3 weeks ago. She has a history of hypothyroidism, HTN, obesity, and prolonged immobility due to left knee pain. Upon arrival she had an oxygen saturation of 79% on room air. Workup revealed an elevated d-dimer, mildly elevated troponin, negative rapid COVID test, and CT angiogram showed extensive bilateral PE. Joanne was admitted on 10/11/20 and began Eliquis and HLIVF. Left leg pain prompted venous doppler study which revealed thrombosis of the left popliteal, anterior and posterior tibial veins. Cardiology was consulted on 10/12 and felt that the elevated troponin was due to large PE, however they still consider the pt a good candidate for an outpatient nuclear stress test. They also added Lisinopril for her HTN. Pt has been on [place] O2 throughout her stay. At home oxygen evaluation is pending. She has been advised to discontinue oral contraceptive and make prompt follow-up appointments with cardiology and her PCP, Dr. Starkey in [place]. Patient is now able to walk around with minimal shortness of breath and she feels ready to go home. It is hypothesized that she had COVID-19 3 weeks ago which increased thrombosis risk along with her prolonged immobility, obesity, and hormone use. COVID-19 antibody level pending. MARI SNYDER DO 10/13/204: Supervisory-Addendum Brief Verification & Attestation Participated in pt care: history, MDM, physical Personally performed: exam, history, MDM, supervision of care Care discussed with: Medical Student Procedures: n/a Results interpretation: Verified all documentation Verification and Attestation of Medical Student E/M Service A medical student performed and documented this service in my presence. I reviewed and verified all information documented by the medical student and made modifications to such information, when appropriate. I personally performed the physical exam and medical decision making. Mari Snyder, Oct 13, 2020,19:54 DANISH DELGADO MED STUDENT Oct 13, 2020 12:19 MARI SNYDER DO Oct 13, 2020 19:54
--- NOTE | 2020-10-13 17:11 | NUR ---
Patient discharge to home with home oxygen and prescriptions for Eliquist. She has a follow up appt with Dr Marquez in two weeks. She already has an appt scheduled with her pcp. Discussed the risks of Eliquist as well as worsening DVT or PE. Advised to go to ED immediately if she should have symptoms.
--- NOTE | 2020-10-14 16:09 | Physician Query Clarification ---
PQ-Intro New Diagnosis Admission/Discharge Admission Date: Oct 11, 2020 at 14:02 Discharge Date: Oct 13, 2020 at 15:40 Dr. Christie, The medical record reflects the following clinical scenario: History/Risk Factors: suspect covid 3 weeks ago, MOB Clinical Findings: CT scan shows bilateral PE, elevated troponin 0.070 Treatment: Eliquis Question: What condition best reflects the above clinical scenario? Please document a response in the Progress Noter or Discharge Summary. 1. Type 2 MS d/t tess PE 2. Elevated troponin only d/t tess PE 3. Other, with explanation of the clinical findings. 4. Clinically undetermined, no explanation for the clinical findings. PHYSICIAN RESPONSE What condition reflects above: 1 Please remember a lack of response to the above will prompt a phone page by CDI/Coding staff. In responding to this query, please exercise your independent professional judgment. The purpose of this communication is to more accurately reflect the complexity of your patients condition. The fact that a question is asked does not imply that any particular answer is desired or expected. Thank you for your timely response to this clarification. Requestors name: [email or web address] THIS PHYSICIAN QUERY FORM IS A PERMANENT PART OF THE MEDICAL RECORD FATOU BROWNE Oct 14, 2020 16:09 IBETH CHRISTIE DO Oct 14, 2020 19:44
== END 2020-10-13 15:40 | disposition home or self-care (01) | DRG 175 ==
LOC: EDUNIT# 10:00 → ER 10:01 → ICU 14:02 → 4TH 10-12 15:04
PROVIDERS: ADMIT Internal Medicine; ATTEND Internal Medicine
DX: I26.99 Other pulmonary embolism without acute cor pulmonale (principal); I21.A1 Myocardial infarction type 2; I82.442 Acute embolism and thrombosis of left tibial vein; I82.432 Acute embolism and thrombosis of left popliteal vein; Z68.43 Body mass index [BMI] 50.0-59.9, adult; B94.8 Sequelae of other specified infectious and parasitic diseases; I10 Essential (primary) hypertension; E66.01 Morbid (severe) obesity due to excess calories; I44.7 Left bundle-branch block, unspecified; R09.02 Hypoxemia; M25.562 Pain in left knee; E03.9 Hypothyroidism, unspecified
CPT/HCPCS: 36415; 71045; 71275; 80048; 80053; 80061; 83615; 83735; 83874; 83880; 84100; 84145; 84484; 85025; 85379; 85610; 85730; 86141; 86769; 87081; 87635; 87804; 93005; 93041; 93306; 93970; 94761

== ENCOUNTER → 2020-11-05 | Outpatient (CLI) | payer BC ==
[~2020-11-05] VITALS: Ht 172 cm; Wt 163.0 kg
[~2020-11-05] MED LIST: APIX5TAB PO; CATHETER FLUSH 10 ML SYR IV PRN; LEVO-243 PO; LEVO125T6 PO; REGADENOSON 0.4 MG/5 ML SYR (LEXISCAN) IV ONE
[2020-11-05 09:21] VITALS: BP 212/109
[2020-11-05 09:24] VITALS: BP 195/97
--- NOTE | 2020-11-05 12:21 | Cardiology Stress Test Report ---
Stress Test Report Date of Procedure/Referring: Date of Procedure: Nov 05, 2020 PCP Laura Ramesh Admitting [facility] Indications: Hypertension Baseline Heart Rate: 97 Baseline Blood Pressure: Blood Pressure Systolic: 195 Blood Pressure Diastolic: 97 Baseline Vitals Vital Signs Date Time Temp Pulse Resp B/P (MAP) Pulse Ox O2 Delivery O2 Flow Rate FiO2 11/05/20 09:21 109 18 212/109 (143) 97 Room Air Baseline EKG: Baseline EKG: NSR Summary After explaining the procedure to the patient, she signed a consent and then brought to the stress nuclear laboratory. Patient received 0.4 mg Lexiscan for stress test, ECG, heart rate and blood pressure were monitored continuously. Resting and stress dose of radio tracer were injected, imaging was acquired and reviewed in short axis, horizontal long axis and vertical long axis views. TID: 0.99 SSS: 18 SDS: 13 EF: 35 1. Patient tolerated Lexiscan well 2. Baseline left bundle branch block persisted during test 3. Breast attenuation with reversible ischemia involving the whole anterior wall, anterolateral wall and anterior septum. 4. Prominent left ventricle with diffuse left ventricular hypokinesia, EF 35 percent MARTA BARROSO MD Nov 05, 2020 12:21
== END ==
LOC: CARD 08:00
PROVIDERS: ATTEND Physician Assistant
DX: I10 Essential (primary) hypertension (principal)
CPT/HCPCS: 78452; 93017; A9502

== ENCOUNTER 2020-11-19 10:36 | Day surgery (SDC) | payer BC ==
[2020-11-19] VITALS (10 sets, daily range): BP systolic 112–194; BP diastolic 86–99
[~2020-11-19] VITALS: Ht 180 cm; Wt 164.0 kg
[~2020-11-19 10:36] MED LIST changes: -CATHETER FLUSH 10 ML SYR IV PRN; -REGADENOSON 0.4 MG/5 ML SYR (LEXISCAN) IV ONE
[2020-11-19] MEDS ORDERED: NS IV 1000 ML 1,000 ML ONE (10:52)
[2020-11-19] MEDS ORDERED: HEParin (CATH LAB) 2,000 ML IV ONE (10:52)
[2020-11-19] MEDS ORDERED: LIDOCAINE 1% INJ 20 ML 20 ML VIAL ONE (10:52)
[2020-11-19] MEDS ORDERED: NS IV 1000 ML 1,000 ML IV SCH ×2 (11:00→12:45)
[2020-11-19 11:16] LABS: HEMOGLOBIN 12.7 g/dL (11.5-16.0); MEAN PLATELET VOLUME 9.4 fL (9.0-12.2); WHITE BLOOD COUNT 13.1 10^3/uL (4.3-11.0)
[2020-11-19] MEDS ORDERED: LISI10TA25 PO (11:20)
[2020-11-19 11:29] LABS: INR 0.9 (0.8-1.4); PROTHROMBIN TIME PATIENT 12.9 SEC (12.2-14.7)
[2020-11-19 11:38] LABS: ALANINE AMINOTRANSFERASE 28 U/L (0-55); ALBUMIN 4.2 GM/DL (3.2-4.5); ALKALINE PHOSPHATASE 146 U/L (40-136); BILIRUBIN,TOTAL 0.4 MG/DL (0.1-1.0); BUN/CREATININE RATIO 16; CALCIUM 9.4 MG/DL (8.5-10.1); CARBON DIOXIDE 22 MMOL/L (21-32); CHLORIDE 103 MMOL/L (98-107); CHOLESTEROL 151 MG/DL (< 200); CREATININE SERUM 0.93 MG/DL (0.60-1.30); GFR ESTIMATED > 60; GLUCOSE 98 MG/DL (70-105); HDL CHOLESTEROL 49 MG/DL (40-60); POTASSIUM 4.2 MMOL/L (3.6-5.0); SODIUM 140 MMOL/L (135-145); TOTAL PROTEIN 8.4 GM/DL (6.4-8.2); TRIGLYCERIDES 106 MG/DL (<150); VLDL CHOLESTEROL 21 MG/DL (5-40)
[2020-11-19] MEDS ORDERED: fentaNYL INJECTION 100 MCG/2 ML AMP ONE ×2 (11:41→12:06)
[2020-11-19] MEDS ORDERED: MIDAZOLAM 5 MG/5 ML (VERSED) VIAL ONE ×2 (11:41→11:58)
[2020-11-19] MEDS ORDERED: HEParin 1000 UNIT/ML (10ML VIAL) FOR BOLUS ONE (11:43)
[2020-11-19] MEDS ORDERED: VERAPAMIL 5 MG/2 ML (CALAN) VIAL IV ONE (11:43)
[2020-11-19] MEDS ORDERED: NITRO DRIP 25000 MCG/D5W 250 ML IV ONE (11:43)
--- NOTE | 2020-11-19 12:34 | Discharge Inst-Post CATH ---
Discharge Inst-CATH/EP Problems Reviewed?: Yes Post Cardiac Cath/EP D/C Inst Follow Up/Plan Appointment with Dr. BARROSO's office in 4-6 weeks <b>CARDIAC CATH/EP PROCEDURE DISCHARGE INSTRUCTIONS</b> ACTIVITY * Go Home directly and rest. * Limit activity of the leg (or wrist if it was used) for 7 days including aerobics, swimming, jogging, bicycling, etc. * Restrict stair-climbing for 7 days if possible, if not, climb up with your non-cath leg, then bring together on the same step. * Avoid lifting, pushing, pulling or excessive movement of the affected extremity for 7 days. * Customary sexual activity may be resumed after 2 days-use caution not to use a position that strains or causes pain to the affected extremity. * No driving for 24 hours. * NO SMOKING. * Avoid straining for bowel movements for 7 days. * Gentle walking on level ground is allowed. * Returning to work will depend on the type of procedure and the results. Your doctor will discuss this with you. CALL YOUR DOCTOR FOR ANY OF THE FOLLOWING: *If bleeding from the puncture site occurs- Apply gentle pressure to site with clean cloth and call your doctor or EMS. * If a knot or lump forms under the skin, increases in size, or causes pain. * If bruising appears to be worsening or moving further down your leg instead of disappearing. * Temperature above 101 F. CARE OF YOUR GROIN INCISION; * Bruising or purple discoloration of the skin near the puncture site is common. * You may shower only, no bathtub bathing for 5 days. Be careful to avoid slipping as your leg may feel stiff. * If a closure device was used on your femoral artery, please see the attached guide regarding care of the device and your leg. * Leave dressing on FOR 24 hours. CARE OF YOUR WRIST INCISION; * Bruising or purple discoloration of the skin near the puncture site is common. * You may shower. * DO NOT submerge wrist. * Leave dressing on FOR 24 hours. MARTA BARROSO MD Nov 19, 2020 12:34
--- NOTE | 2020-11-19 12:40 | Diagnostic Imaging Report ---
Indication: Abnormal stress test, dyspnea COMPARISON: 10/12/2020 TECHNIQUE: Single radiograph the chest dated 11/19/2020 FINDINGS: The cardiac silhouette is enlarged, though stable. No significant pulmonary vascular congestion. Improved aeration of the lungs when compared to the prior examination with the lungs now appearing clear. No significant pleural effusion. No pneumothorax. No acute osseous abnormality. IMPRESSION: Cardiomegaly without significant pulmonary vascular congestion or additional superimposed acute cardiopulmonary abnormality. Dictated by: Dictated on workstation # [id number]
--- NOTE | 2020-11-19 12:41 | Cardiac Cath Report ---
Cardiac Cath Report Physician (s)/Cycle Analyst (s) Physician MARTA BARROSO MD Pre-Procedure Diagnosis Pre-Procedure Diagnosis: coronary artery disease Post-Procedure Note Procedure Start Date: Nov 19, 2020 Name of Procedure: Coronary angiogram Findings/Procedure Note PROCEDURE NOTE: 68-year-old lady with history of pulmonary embolism, chronic shortness of breath, maintained on oral anticoagulation, had an abnormal stress test. Scheduled for cardiac catheterization possible PTCA. After explaining the procedure to the patient, all pros and cons were explained, all questions were answered. The patient signed the consent and then she was placed on the cardiac catheterization laboratory. Groin was prepped SL fashion local anesthesia was used. Sheath placed in the right radial artery, [place] catheter was advanced to the right coronary artery, intubated the artery and angiogram was done then turned to the left coronary system and left coronary angiogram was done. At the end of the procedure the sheath was removed. Vascular band was used FINDINGS: Hemodynamics LV pressure was not measured, did not cross the aortic valve Aorta 124/91 mean of 71 ANATOMY: Left Main is free of obstructive disease Left Anterior Descending is free of obstructive disease Left Circumflex is slightly tortuous with no obstructive disease Right Coronory Artery is dominant artery with no obstructive disease CONCLUSION: 1. Normal coronary arteries with no significant obstructive disease DISCUSSION AND RECOMMENDATION: Patient symptoms are probably related to the pulmonary embolism, she does not have any significant obstructive coronary artery disease Anesthesia Type: Conscious Sedation Estimated blood loss (mL): 10 ml Contrast Amount: 42 ml Total Radiation Dose: 570 mGy Post-Procedure Diagnosis Post-operative diagnosis: Chest pain Shortness of breath Hypertension Pulmonary embolism MARTA BARROSO MD Nov 19, 2020 12:41 pm
--- NOTE | 2020-11-19 12:42 | Cardiac Procedure Note-CS/ASA ---
Pre-Procedure Note Pre-Op Procedure Note H&P Reviewed The H&P was reviewed, patient examined and no changes noted. Date H&P Reviewed: Nov 19, 2020 Time H&P Reviewed: 11:00 Conscious Sedation Pre-Proced Time 11:00 ASA Score 3 For ASA 3 and 4: Consider anesthesia and medical clearance. Also, for patients with a history of failed moderate sedation consider anesthesia. Airway Lungs Heart ASA score ASA 1: a normal healthy patient ASA 2: a patient with a mild systemic disease (mid diabetes, controlled hypertension, obesity x ASA 3: a patient with a severe systemic disease that limits activity (angina, COPD, prior Myocardial infarction) ASA 4: a patient with an incapacitating disease that is a constant threat to life (CHF, renal failure) ASA 5: a moribund patient not expected to survive 24 hrs. (ruptured aneurysm) ASA 6: a declared brain- patient whose organs are being harvested. For emergent operations, add the letter E after the classification Mallampati Classification Grade 3 Sedation Plan Analgesia, Amnesia, Plan communicated to team members, Discussed options with patient/fam, Discussed risks with patient/fam The patient is an appropriate candidate to undergo the planned procedure, sedation, and anesthesia. The patient immediately re-assessed prior to indication. MARTA BARROSO MD Nov 19, 2020 12:42 pm
== END 2020-11-19 15:10 | disposition home or self-care (01) ==
LOC: CATH 10:36 → SDC 12:41 → CATH 15:10
PROVIDERS: ATTEND Internal Medicine Cardiovascular Disease
DX: R94.39 Abnormal result of other cardiovascular function study (principal); I26.99 Other pulmonary embolism without acute cor pulmonale; I10 Essential (primary) hypertension; I44.7 Left bundle-branch block, unspecified; E66.9 Obesity, unspecified; E03.9 Hypothyroidism, unspecified; Z68.43 Body mass index [BMI] 50.0-59.9, adult; Z79.01 Long term (current) use of anticoagulants; Z79.899 Other long term (current) drug therapy
CPT/HCPCS: 71045; 80053; 80061; 85027; 85610; 85730; 87081; 93454; C1894; 36415

== ENCOUNTER 2021-05-12 05:43 | Outpatient (CLI) | payer BC ==
[~2021-05-12] VITALS: Ht 180.3 cm; Wt 164.2 kg
[~2021-05-12 05:43] MED LIST changes: +LISI10TA25 PO
== END 2021-05-12 15:43 | disposition home or self-care (01) ==
LOC: PREOP 05:43
PROVIDERS: ATTEND Surgery
DX: Z01.818 Encounter for other preprocedural examination (principal)

== ENCOUNTER 2021-05-19 08:54 | Day surgery (SDC) | payer BC ==
[~2021-05-19] VITALS: Ht 180 cm; Wt 164.0 kg
[2021-05-19] MEDS ORDERED: LACTATED RINGERS 1,000 ML IV STA (08:55)
[2021-05-19 09:15] VITALS: BP 141/87
[2021-05-19] MEDS ORDERED: MIDAZOLAM 2 MG/2 ML (VERSED) VIAL ONE (09:32)
[2021-05-19] MEDS ORDERED: PROPOFOL INJECTION 50 ML IV ONE ×2 (09:32→09:42)
[2021-05-19 10:30] VITALS: BP 169/76
[2021-05-19 10:35] VITALS: BP 168/97
--- NOTE | 2021-05-19 10:41 | Progress Note-Post Operative ---
Post-Operative Progess Note Surgeon (s)/Aircraft Life Support Fitter (s) Surgeon RIRI BENNETT DO Aircraft Life Support Fitter: na Pre-Operative Diagnosis + cologuard Post-Operative Diagnosis Cecum polyp, Rectal polyp, rectal mass Procedure & Operative Findings Date of Procedure 05/19/21 Procedure Performed/Findings Colonoscopy with hot polypectomy x4, snare polypectomy with barrett inking Anesthesia Type per strapper and buffer Estimated Blood Loss Estimated blood loss (mL): scant Specimens/Packing Specimens Removed colon polyps and rectal mass RIRI BENNETT DO May 19, 2021 10:41
--- NOTE | 2021-05-19 10:43 | Discharge Inst-Simple/Standard ---
Discharge Inst-Standard Patient Instructions/Follow Up Plan of Care/Instructions/FU: 2 weeks Brandon dodson 5 days Activity as Tolerated: Yes Discharge Diet: Regular Diet RIRI BENNETT DO May 19, 2021 10:43
[2021-05-19 11:05] VITALS: BP 163/88
[2021-05-19 11:11] VITALS: BP 163/88
--- NOTE | 2021-05-19 11:44 | OPERATIVE REPORT ---
DATE OF SERVICE: 05/19/2021 PREOPERATIVE DIAGNOSIS: Positive Cologuard. POSTOPERATIVE DIAGNOSES: Cecal polyp, descending colon polyp, rectal mass and rectal polyp x2. PROCEDURE: Colonoscopy with hot biopsy polypectomy x4 and snare polypectomy with Rosa inking of rectal mass. SURGEON: Riri Taylor DO ANESTHESIA: Per AUTO AIR CONDITIONING INSTALLER. ESTIMATED BLOOD LOSS: Scant. COMPLICATIONS: None. INDICATIONS: The patient is a 50-year-old female with positive Cologuard. She understands risks and benefits of procedure and wished to proceed with procedure. Consent was signed in the chart. DESCRIPTION OF PROCEDURE: The patient was taken to the endoscopy suite, placed in left lateral recumbent position. Timeout was performed. Digital rectal exam was performed. No palpable polyps, masses or ulcerations. Scope was inserted in the rectum, advanced all the way to cecum with minimal difficulty. Prep was adequate. Scope was then slowly retracted back in the cecum, a small flat polyp was present, which hot biopsy polypectomy was performed and the specimen obtained. There were no polyps, masses or ulcerations within the ascending and transverse colon. In the descending colon, another small polyp was present, which hot biopsy polypectomy was performed. Scope was then continuously retracted back into the sigmoid colon, which had no polyps, masses or ulcerations. In the rectum, right near the rectosigmoid junction, a large mass was present. This was more on a pedunculated stalk, which using a snare and piecemeal, this was able to be removed. The stalk was able to be obtained as well. Two small polyps were present in the rectum, which hot biopsy polypectomy was performed. Just distal to the area of the rectal mass, Rosa ink was injected into 3 different locations, 1 mL in each location. Scope was retroflexed noting no other pathology. Scope was returned to its normal position, slowly withdrawn until completely removed. The patient tolerated procedure well without any complications. She was taken to recovery room in stable condition. RECOMMENDATIONS: The patient will follow up on pathology in approximately 2 weeks. Further we will make recommendations pending pathology results. The patient depending upon pathology, we would likely need repeat colonoscopy in 3 to 6 months to reevaluate the area. Job ID: [id number] DocumentID: [id number] Dictated Date: 05/19/2021 10:47:20 Surgical Garment Fitter Date: 05/19/2021 11:42:47 Dictated By: RIRI TAYLOR DO
--- NOTE | 2021-05-19 14:55 | Anesthesia-General Post-Op ---
MAC Patient Condition Mental Status/LOC: Same as Preop Cardiovascular: Satisfactory Nausea/Vomiting: Absent Respiratory: Satisfactory Pain: Controlled Complications: Absent Post Op Complications Complications None Follow Up Care/Instructions Patient Instructions None needed. Anesthesiology Discharge Order Discharge Order Patient is doing well, no complaints, stable vital signs, no apparent adverse anesthesia problems. No complications reported per nursing. GREER CARBAJAL CRNA May 19, 2021 14:55
== END 2021-05-19 11:15 | disposition home or self-care (01) ==
LOC: ENDO 08:54
PROVIDERS: ATTEND Surgery
DX: D12.0 Benign neoplasm of cecum (principal); D12.4 Benign neoplasm of descending colon; D12.8 Benign neoplasm of rectum; I10 Essential (primary) hypertension; Z79.899 Other long term (current) drug therapy; Z79.01 Long term (current) use of anticoagulants; Z79.51 Long term (current) use of inhaled steroids
CPT/HCPCS: 84703; 88305

== ENCOUNTER → 2021-07-01 | Outpatient (CLI) | payer BC ==
[~2021-07-01] MED LIST changes: +CATHETER FLUSH 10 ML SYR IV PRN; +HOLD METFORMIN - RECEIVED CONTRAST 20 ML VIAL IV SCH; +IOHEXOL 350 MG/ML 100 ML (OMNIPAQUE 350) VIAL IV ONE; +NS 100 ML (IVPB) BAG IV ONE
[2021-07-01 11:12] LABS: BILIRUBIN,TOTAL 0.3 MG/DL (0.1-1.0); CALCIUM 9.2 MG/DL (8.5-10.1); CREATININE SERUM 0.76 MG/DL (0.60-1.30); TOTAL PROTEIN 7.9 GM/DL (6.4-8.2)
--- NOTE | 2021-07-01 11:55 | Diagnostic Imaging Report ---
PROCEDURE: CT angiography of the chest with contrast. TECHNIQUE: Multiple contiguous axial images were obtained through the chest after uneventful bolus administration of intravenous contrast. 3D reconstructed CTA MIP acquisitions were also performed. Auto Exposure Controls were utilized during the CT exam to meet ALARA standards for radiation dose reduction. INDICATION: Prior history of pulmonary embolism. COMPARISON: 10/11/2020. FINDINGS: The previously noted extensive clot burden involving the bilateral pulmonary arteries has resolved. No filling defects are seen within central, lobar, or segmental branches. The thoracic aorta is of normal caliber. No dissection is seen. There is no pericardial or pleural fluid identified. There is minimal scarring in the right middle lobe and lingula. Small nodules in the subpleural location of the left lower lobe are stable. The upper abdomen demonstrates hepatic steatosis. IMPRESSION: Resolution of the extensive bilateral pulmonary emboli noted on the study from 10/11/2020. No current emboli are identified. Dictated by: Dictated on workstation # [id number]
== END ==
LOC: RAD 11:45
PROVIDERS: ATTEND Nurse Practitioner Family
DX: Z86.711 Personal history of pulmonary embolism (principal)
CPT/HCPCS: 36415; 71275; 80053

== ENCOUNTER → 2021-07-07 | Outpatient (CLI) | payer BC ==
[~2021-07-07] MED LIST changes: -CATHETER FLUSH 10 ML SYR IV PRN; -HOLD METFORMIN - RECEIVED CONTRAST 20 ML VIAL IV SCH; -IOHEXOL 350 MG/ML 100 ML (OMNIPAQUE 350) VIAL IV ONE; -NS 100 ML (IVPB) BAG IV ONE
== END ==
LOC: LAB 11:31
PROVIDERS: ATTEND Physician Assistant
DX: Z86.711 Personal history of pulmonary embolism (principal)
CPT/HCPCS: 36415; 81240; 81241; 85300; 86038; 86039

== ENCOUNTER 2021-09-21 10:51 | Outpatient (CLI) | payer BC ==
[~2021-09-21] VITALS: Ht 180.3 cm; Wt 152.8 kg
[2021-09-21] MEDS ORDERED: ASPI-999 PO (12:12)
[2021-09-21] MEDS ORDERED: MELO15TA14 PO (12:15)
[2021-09-21] MEDS ORDERED: ACHD5005 PO (12:15)
== END 2021-09-21 14:25 | disposition home or self-care (01) ==
LOC: PREOP 10:51
PROVIDERS: ATTEND Surgery
DX: Z01.818 Encounter for other preprocedural examination (principal)

== ENCOUNTER 2021-09-29 09:58 | Day surgery (SDC) | payer BC ==
[~2021-09-29] VITALS: Ht 180.3 cm; Wt 152.8 kg
[~2021-09-29 09:58] MED LIST changes: +ACHD5005 PO; +ASPI-999 PO; +MELO15TA14 PO
[2021-09-29] MEDS ORDERED: LACTATED RINGERS 1,000 ML IV STA (10:01)
[2021-09-29] MEDS ORDERED: LACTATED RINGERS 1,000 ML IV ONE (10:06)
[2021-09-29 10:30] VITALS: BP 144/91
[2021-09-29] MEDS ORDERED: KETAMINE SYRINGE 50 MG/5 ML SYRINGE ONE (11:55)
[2021-09-29] MEDS ORDERED: MIDAZOLAM 2 MG/2 ML (VERSED) VIAL ONE (11:55)
[2021-09-29] MEDS ORDERED: PROPOFOL INJECTION 50 ML IV ONE (11:56)
--- NOTE | 2021-09-29 12:03 | Progress Note-Pre Operative ---
Pre-Operative Progress Note H&P Reviewed The H&P was reviewed, patient examined and no changes noted. Date Seen by Provider: Sep 29, 2021 Time Seen by Provider: 12:03 Date H&P Reviewed: Sep 29, 2021 Time H&P Reviewed: 12:03 Pre-Operative Diagnosis: history of polyps RIRI BENNETT DO Sep 29, 2021 12:03
[2021-09-29 12:34] VITALS: BP 137/83
--- NOTE | 2021-09-29 12:37 | Discharge Inst-Simple/Standard ---
Discharge Inst-Standard Patient Instructions/Follow Up Plan of Care/Instructions/FU: 2 weeks Brandon Activity as Tolerated: Yes Discharge Diet: Regular Diet RIRI BENNETT DO Sep 29, 2021 12:37
[2021-09-29 13:12] VITALS: BP 134/78
--- NOTE | 2021-09-29 13:35 | Anesthesia-General Post-Op ---
MAC Patient Condition Mental Status/LOC: Same as Preop Cardiovascular: Satisfactory Nausea/Vomiting: Absent Respiratory: Satisfactory Pain: Controlled Complications: Absent Post Op Complications Complications None Follow Up Care/Instructions Patient Instructions None needed. Anesthesiology Discharge Order Discharge Order Patient is doing well, no complaints, stable vital signs, no apparent adverse anesthesia problems. No complications reported per nursing. GREER CARBAJAL CRNA Sep 29, 2021 13:35
--- NOTE | 2021-09-29 18:18 | OPERATIVE REPORT ---
DATE OF SERVICE: 09/29/2021 PREOPERATIVE DIAGNOSIS: History of colon polyps. POSTOPERATIVE DIAGNOSIS: Colon polyps. PROCEDURE: Colonoscopy with hot biopsy polypectomy x2. SURGEON: Riri Taylor DO ANESTHESIA: Per TARGET PROTECTION SPECIALIST. ESTIMATED BLOOD LOSS: None. COMPLICATIONS: None. INDICATIONS: The patient is a 51-year-old female with recent history of a large polyp. She understands risks and benefits of procedure and wishes to proceed. Consent was signed in the chart. DESCRIPTION OF PROCEDURE: The patient was taken to endoscopy suite, placed in left lateral recumbent position. Timeout was performed. Digital rectal exam was performed. No palpable polyps, masses or ulcerations. Scope was inserted in the rectum and advanced all the way to cecum with minimal difficulty. Prep was adequate. Scope was slowly retracted back in the cecum, a small polyp was present, which hot biopsy polypectomy was performed. Scope was then continuously retracted back. No polyps, masses or ulcerations. In the ascending colon and transverse colon, a small polyp was present, which hot biopsy polypectomy was performed. Scope was then continuously retracted back. No polyps, masses or ulcerations in remainder transverse, descending and sigmoid colon. The area of tattoo was also visualized. Scope was then retracted back in the rectum, it was also retroflexed noting no other pathology. Scope was returned to its normal position, slowly withdrawn until completely removed. The patient tolerated procedure well without any complications. She was taken to recovery room in stable condition. RECOMMENDATIONS: The patient will need repeat colonoscopy in 3 years. Any issues before that be seen at that time. CC: Melida Green -- requested, unable to deliver. Job ID: [id number] DocumentID: [id number] Dictated Date: 09/29/2021 12:32:41 Office Professional Date: 09/29/2021 18:17:26 Dictated By: RIRI TAYLOR DO
== END 2021-09-29 13:17 | disposition home or self-care (01) ==
LOC: ENDO 09:58
PROVIDERS: ATTEND Surgery
DX: Z12.11 Encounter for screening for malignant neoplasm of colon (principal); D12.0 Benign neoplasm of cecum; D12.3 Benign neoplasm of transverse colon; I10 Essential (primary) hypertension; J30.9 Allergic rhinitis, unspecified; K21.9 Gastro-esophageal reflux disease without esophagitis; E03.9 Hypothyroidism, unspecified; E66.9 Obesity, unspecified; Z79.82 Long term (current) use of aspirin; Z79.890 Hormone replacement therapy; Z79.899 Other long term (current) drug therapy; Z79.891 Long term (current) use of opiate analgesic; Z68.42 Body mass index [BMI] 45.0-49.9, adult
CPT/HCPCS: 84703; 88305